=== PATIENT | male | born 1990 | race Two or more races ===

== ENCOUNTER 2017-01-11 10:41 | Observation (INO) | payer SELFPAY ==
[~2017-01-11] VITALS: Ht 188 cm; Wt 81.6 kg
[2017-01-11] MEDS ORDERED: SODIUM CHLORIDE 0.9% 1,000 ML IV ONE (10:49)
[2017-01-11] MEDS ORDERED: LORazepam 2MG/ML-1ML VIAL IV ONE (11:00)
[2017-01-11 11:25] LABS: Basophils # (auto) 0.1 uL; Basophils % (auto) 0.6 % (0.0-2.0); Eosinophils # (auto) 0 uL; Eosinophils % (auto) 0.1 % (0.0-7.0); Hematocrit 47.2 % (41.0-53.0); Hemoglobin 16.3 g/dL (13.5-17.5); Lymphocytes # (auto) 2.2 uL; Lymphocytes % (auto) 18.7 % (10.0-50.0); Mean Corpuscular Hemoglobin 30.1 pg (28.0-32.0); Mean Corpuscular Hgb Conc. 34.4 g/dL (32.0-36.0); Mean Corpuscular Volume 87.4 fL (80.0-100.0); Monocytes # (auto) 1.3 uL; Neutrophils # (auto) 8.3 uL; Neutrophils % (auto) 69.6 % (37.0-80.0); Nucleated Red Blood Cells % 0.1 %; Platelet Count (auto) 217 10^3/uL (140-450); Red Cell Distribution Width 13.3 % (11.8-14.3); White Blood Cell 11.9 10^3/uL (4.4-10.8)
[2017-01-11 12:06] LABS: Acetaminophen < 2.0 ug/mL (10-30); Alanine Aminotransferase 43 U/L (16-61); Albumin 4.7 g/dL (3.4-5.0); Alkaline Phosphatase 98 U/L (45-117); Anion Gap 12 (5-15); Aspartate Aminotransferase 57 U/L (15-37); Bilirubin, Total 1.5 mg/dL (0.2-1.0); Blood Alcohol < 3.0 mg/dL (0-5); Blood Urea Nitrogen 16 mg/dL (7-18); Calcium 9.3 mg/dL (8.5-10.1); Carbon Dioxide 19 mmol/L (21-32); Chloride 104 mmol/L (98-107); GFR African American 100 mL/min; GFR Non-African American 83 mL/min; Glucose 97 mg/dL (74-106); Potassium 3.4 mmol/L (3.5-5.1); Salicylate < 1.7 mg/dL (2.8-20.0); Sodium 135 mmol/L (136-145); Total Protein 8.6 g/dL (6.4-8.2)
[2017-01-11 12:25] LABS: Urine Bacteria NONE SEEN /hpf (None Seen); Urine Blood Negative /uL (Negative); Urine Mucus FEW (None Seen); Urine Specific Gravity 1.012 (1.001-1.035); Urine WBC <1 /hpf (0 - 3)
[2017-01-11 12:46] LABS: Alcohol, Urine < 3.0 mg/dL (0-5); Amphetamine Screen, Urine POSITIVE (NEGATIVE); Barbiturate Scree,Urine NEGATIVE (NEGATIVE); Benzodiazephine Screen, Urine NEGATIVE (NEGATIVE); Cannabinoid Screen, Urine NEGATIVE (NEGATIVE); Cocaine Screen, Urine NEGATIVE (NEGATIVE); Opiate Scree,Urine NEGATIVE (NEGATIVE); Phencyclidine Screen, Urine NEGATIVE (NEGATIVE)
[2017-01-11 12:53] VITALS: BP 158/80
== END 2017-01-11 12:56 | disposition home or self-care (01) | DRG 897 ==
LOC: ER 10:41 → EDBD 10:41 → OVERFLOW 11:38 → ER 12:56
PROVIDERS: ADMIT Family Medicine; ATTEND Family Medicine
DX: F15.10 Other stimulant abuse, uncomplicated (principal); E86.0 Dehydration; F41.9 Anxiety disorder, unspecified
CPT/HCPCS: 36415; 71010; 80053; 80307; 80320; 80329; 81001; 85025; 93005; 96361; 96374; 99285; G0378; J2060; J7030

== ENCOUNTER 2017-06-09 15:19 | Emergency (ER) | payer MEDICAID ==
[~2017-06-09] VITALS: Ht 188 cm; Wt 81.6 kg
[2017-06-09 15:49] VITALS: BP 122/84
== END 2017-06-09 19:09 | disposition left against medical advice (07) ==
LOC: ER 15:24
DX: M79.672 Pain in left foot (principal); M79.671 Pain in right foot; Z53.21 Procedure and treatment not carried out due to patient leaving prior to being seen by health care provider

== ENCOUNTER 2017-06-10 12:55 | Emergency (ER) | payer MEDICAID ==
[~2017-06-10] VITALS: Ht 188 cm; Wt 81.6 kg
[2017-06-10 14:00] VITALS: BP 137/78
[2017-06-10] MEDS ORDERED: IBUPROFEN 800 MG TAB PO ONE (14:45)
== END 2017-06-10 15:05 | disposition home or self-care (01) ==
LOC: ER 12:55
DX: M79.672 Pain in left foot (principal); X50.1XXA Overexertion from prolonged static or awkward postures, initial encounter; Y93.B9 Activity, other involving muscle strengthening exercises; Y92.89 Other specified places as the place of occurrence of the external cause; Y99.8 Other external cause status

== ENCOUNTER 2017-06-25 18:26 | Emergency (ER) | payer MEDICAID ==
[~2017-06-25] VITALS: Ht 182.9 cm; Wt 96.2 kg
[2017-06-25] MEDS ORDERED: OLANZapine 5 MG TAB PO ONE (19:15)
[2017-06-25 20:27] LABS: Amphetamine Screen, Urine POSITIVE (NEGATIVE); Barbiturate Scree,Urine NEGATIVE (NEGATIVE); Benzodiazephine Screen, Urine NEGATIVE (NEGATIVE); Cannabinoid Screen, Urine NEGATIVE (NEGATIVE); Cocaine Screen, Urine NEGATIVE (NEGATIVE); Opiate Scree,Urine NEGATIVE (NEGATIVE); Phencyclidine Screen, Urine NEGATIVE (NEGATIVE)
[2017-06-26 07:54] VITALS: BP 111/57
== END 2017-06-26 07:56 | disposition home or self-care (01) ==
LOC: ER 18:26
DX: F29 Unspecified psychosis not due to a substance or known physiological condition (principal); F15.10 Other stimulant abuse, uncomplicated
CPT/HCPCS: 36415; 80307; 80320

== ENCOUNTER 2018-06-05 16:01 | Emergency (ER) | payer MEDICAID ==
[~2018-06-05] VITALS: Ht 185.4 cm; Wt 72.6 kg
[2018-06-05 16:30] LABS: Basophils # (auto) 0.1 uL; Basophils % (auto) 0.5 % (0.0-2.0); Eosinophils # (auto) 0.1 uL; Eosinophils % (auto) 0.6 % (0.0-7.0); Hematocrit 46.7 % (41.0-53.0); Lymphocytes # (auto) 2.2 uL; Lymphocytes % (auto) 23.2 % (10.0-50.0); Mean Corpuscular Hemoglobin 29.6 pg (28.0-32.0); Mean Corpuscular Hgb Conc. 34.3 g/dL (32.0-36.0); Mean Corpuscular Volume 86.5 fL (80.0-100.0); Monocytes % (auto) 10.9 % (0.0-12.0); Neutrophils # (auto) 6.3 uL; Neutrophils % (auto) 64.8 % (37.0-80.0); Nucleated Red Blood Cells % 0.1 %; Platelet Count (auto) 243 10^3/uL (140-450); Red Blood Cells 5.39 10^6/uL (4.5-5.90); Red Cell Distribution Width 13.6 % (11.8-14.3); White Blood Cell 9.6 10^3/uL (4.4-10.8)
[2018-06-05 16:49] LABS: Albumin 4.3 g/dL (3.4-5.0); BUN/Creatinine Ratio 13.7; Calcium 9.4 mg/dL (8.5-10.1); Potassium 3.6 mmol/L (3.5-5.1)
[2018-06-05 16:51] LABS: Amphetamine Screen, Urine NEGATIVE (NEGATIVE); Barbiturate Scree,Urine NEGATIVE (NEGATIVE); Benzodiazephine Screen, Urine NEGATIVE (NEGATIVE); Cannabinoid Screen, Urine NEGATIVE (NEGATIVE); Cocaine Screen, Urine NEGATIVE (NEGATIVE); Opiate Scree,Urine NEGATIVE (NEGATIVE); Phencyclidine Screen, Urine NEGATIVE (NEGATIVE)
[2018-06-05 16:51] LABS: Total Protein 8.6 g/dL (6.4-8.2)
[2018-06-05] MEDS ORDERED: SODIUM CHLORIDE 0.9% 1,000 ML IV ONE (17:08)
[2018-06-05] MEDS ORDERED: OLANZapine 5 MG TAB PO ONE (17:15)
[2018-06-05 17:42] LABS: Urine Bacteria NONE SEEN /hpf (None Seen); Urine Blood Negative /uL (Negative); Urine Mucus FEW (None Seen); Urine Specific Gravity 1.037 (1.001-1.035); Urine WBC 3 /hpf (0 - 3)
[2018-06-06 15:40] VITALS: BP 104/64
== END 2018-06-06 16:11 ==
LOC: ER 16:01
DX: F15.159 Other stimulant abuse with stimulant-induced psychotic disorder, unspecified (principal); E86.0 Dehydration; F32.9 Major depressive disorder, single episode, unspecified; F20.9 Schizophrenia, unspecified; R45.851 Suicidal ideations; F41.9 Anxiety disorder, unspecified; Z91.19 Patient's noncompliance with other medical treatment and regimen
CPT/HCPCS: 36415; 71046; 80053; 80307; 81001; 82962; 83735; 84443; 85025; 93005; 94761; 96360

== ENCOUNTER 2018-11-01 01:47 | Emergency (ER) | payer MEDICAID ==
[~2018-11-01] VITALS: Ht 185.4 cm; Wt 95.3 kg
[2018-11-01 02:02] VITALS: BP 155/83
== END 2018-11-01 08:05 | disposition left against medical advice (07) ==
LOC: ER 02:01
DX: F41.9 Anxiety disorder, unspecified (principal); Z53.21 Procedure and treatment not carried out due to patient leaving prior to being seen by health care provider

== ENCOUNTER 2019-09-17 12:18 | Emergency (ER) | payer MEDICAID ==
[~2019-09-17] VITALS: Ht 185.4 cm; Wt 83.9 kg
[2019-09-17 12:20] VITALS: BP 125/90
== END 2019-09-17 14:22 | disposition left against medical advice (07) ==
LOC: ER 12:18
DX: R51 Headache (principal); Z53.21 Procedure and treatment not carried out due to patient leaving prior to being seen by health care provider

== ENCOUNTER 2022-01-19 00:43 | Emergency (ER) | payer MEDICAID ==
[~2022-01-19] VITALS: Ht 185.4 cm; Wt 100.0 kg
[2022-01-19 01:12] VITALS: BP 124/72
== END 2022-01-19 04:46 | disposition left against medical advice (07) ==
LOC: ER 00:43
DX: F41.9 Anxiety disorder, unspecified (principal); Z53.21 Procedure and treatment not carried out due to patient leaving prior to being seen by health care provider

== ENCOUNTER 2022-02-18 01:14 | Emergency (ER) | payer MEDICAID ==
[~2022-02-18] VITALS: Ht 185.4 cm; Wt 100.0 kg
[2022-02-18 01:54] VITALS: BP 128/73
[2022-02-18] MEDS ORDERED: DOXY-332 PO (02:12)
[2022-02-18] MEDS ORDERED: PRED20TA2 PO (02:12)
[2022-02-18] MEDS ORDERED: ACET-1158 PO (02:12)
[2022-02-18] MEDS ORDERED: cefTRIAXone SOD 1,000 MG VL IM ONE (02:15)
[2022-02-18] MEDS ORDERED: SODIUM CHLORIDE 0.9% 1,000 ML IV ONE (02:15)
== END 2022-02-18 03:41 | disposition home or self-care (01) ==
LOC: ER 01:14
DX: U07.1 COVID-19 (principal); J06.9 Acute upper respiratory infection, unspecified
CPT/HCPCS: 36415; 87426; 87804; 96360; 96372; 99283; J0696; J7030

== ENCOUNTER 2022-03-30 06:35 | Emergency (ER) | payer MEDICAID ==
[~2022-03-30] VITALS: Ht 188 cm; Wt 103.0 kg
[~2022-03-30 06:35] MED LIST: ACET-1158 PO; DOXY-332 PO; PRED20TA2 PO
[2022-03-30 08:00] VITALS: BP 129/73
[2022-03-30] MEDS ORDERED: IBUP600T28 PO (08:36)
[2022-03-30] MEDS ORDERED: IBUPROFEN 600 MG TAB PO ONE (08:45)
== END 2022-03-30 08:37 | disposition home or self-care (01) ==
LOC: ER 06:37
DX: S56.312A Strain of extensor or abductor muscles, fascia and tendons of left thumb at forearm level, initial encounter (principal); Z79.1 Long term (current) use of non-steroidal anti-inflammatories (NSAID); Z79.899 Other long term (current) drug therapy; X58.XXXA Exposure to other specified factors, initial encounter; Y93.89 Activity, other specified; Y92.89 Other specified places as the place of occurrence of the external cause; Y99.8 Other external cause status
CPT/HCPCS: 29125; 73140